=== PATIENT | male | born 1960 | race Caucasian/White ===

== ENCOUNTER 2021-08-02 07:32 | Outpatient (CLI) | payer MEDICARE, MEDICAID, SELFPAY ==
[2021-08-02 07:51] VITALS: BMI 39.9
--- NOTE | 2021-08-02 07:59 | ECG_ITS ---
[facility] Test Date: 2021-08-02 Pat Name: Gustavo Bledsoe Department: Room: Gender: Male Manager Inventory: Iman Chambers : 1960 Requested By: Miranda Cantor Order Number: [id number] Annalise MD: Miranda Cantor M.D. Interpretive Statements NAME OF STUDY: LEXISCAN SESTAMIBI STRESS TEST INDICATION: Chest Pain PROCEDURE: At the baseline, the blood pressure was 130/98 mmHg with a heart rate of 60 bpm. The electrocardiogram showed sinus rhythm, normal axis with nonspecific ST-T wave changes. The Lexiscan was infused over a period of 20 seconds. A total of 0.4 milligrams of Lexiscan was infused. The stress phase was continued for a total of 5 minutes. Heart rate at the end of the stress phase was 75 beats per minute with a blood pressure of 127/74 mmHg. The EKG at the peak infusion revealed sinus rhythm with no significant ST-T wave changes. The study was terminated due to protocol completion. Sestamibi was injected 20 seconds after the Lexiscan infusion. Blood pressure at the end of the recovery phase was 128/80 mmHg with a heart rate of 98 beats per minute. CONCLUSION: 1. No significant EKG changes with the LexiScan infusion 2. No LexiScan induced chest pain or cardiac arrhythmia. 3. Normal blood pressure and heart rate response. 4. Sestamibi/sestamibi perfusion scan pending; see separate report. Electronically Signed On 08-08-2021 12:25:17 MARKETING PLANNING MANAGER by Miranda Cantor M.D. [id number]
--- NOTE | 2021-08-02 08:00 | NMCV_ITS ---
NM minoo perf SPECT r/s* [id number] Gustavo Bledsoe Age: 60 Gender: M : 1960 Exam Date: 08/02/2021 08:50 Ordering Phys: Miranda Cantor MD ([email or web address]) Technologist: KWAKU Govea Exam Location: [facility] Indications: CHEST PRESSURE HISTORY OF CAD STRESS TEST Please see separate stress test report in [facility] for full findings IMAGE PROTOCOL Rest/Stress 1 Lexiscan Day Radiopharmaceutical Dose (mCi) Administration Site Administered by Rest: Tc-99m 10.9 IV KWAKU Freeman Sestamibi Stress:Tc-99m 32.8 IV KWAKU Freeman Sestamibi Rest: 02-Aug-2021 60 Discovery 630 Stress: 02-Aug-2021 30 Discovery 630 0.4mg Lexiscan. Images obtained in supine and prone position. SPECT RESULTS Technical Quality: Excellent Raw Data Analysis: Normal Image Corrections: No attenuation or motion correction applied Summed Stress Score: 1 Summed Rest Score: 3 Summed Difference Score: 1 PERFUSION FINDINGS Small sized perfusion abnormality of mild severity of mid to apical inferior and mid anteroseptal mackenzie on rest images with improved tracer uptake on stress images. This is suggestive of attenuation artifact. FUNCTIONAL RESULTS (calculated via Gated SPECT) Stress Image LV EF (%): 71 Stress EDV (mL):125 TID: 0.96 Stress ESV (mL):36 FUNCTIONAL FINDINGS: The left ventricle is normal in size. Transient Ischemia Dilatation of 0.96. There is normal left ventricular systolic function. The left ventricular ejection fraction is normal with a value of 71%. There is normal left ventricular wall thickening. IMPRESSIONS 1. Myocardial perfusion imaging is normal. Attenuation artifact in inferior wall. 2. Overall left ventricular systolic function is normal without regional wall motion abnormalities. 3. The left ventricular ejection fraction is normal with a value of 71%. 4. No prior similar studies to compare. Miranda Cantor MD (Electronically Signed) Final Date: 05 August 2021 16:58 S
[2021-08-02 09:50] VITALS: BP 120/67; PULSE 81
[2021-08-02] MEDS: regadenoson 0.4 Mg/5 ml Syringe IVP (09:50)
== END 2021-08-02 07:33 | disposition home or self-care (01) ==
LOC: CDL 07:41
PROVIDERS: PCP Family Medicine; Visit Provider Internal Medicine Cardiovascular Disease
DX: R07.89 Other chest pain (principal); I25.10 Atherosclerotic heart disease of native coronary artery without angina pectoris; R06.02 Shortness of breath
CPT/HCPCS: 78452; 93017; A9500; J2785

== ENCOUNTER 2021-09-19 12:49 | Emergency (ER) | payer MEDICARE, MEDICAID, SELFPAY ==
[2021-09-19 12:52] VITALS: BP 157/96; PULSE 80; RESP 17; O2SAT 97; BMI 39.9
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
[2021-09-19] MEDS: ketorolac 60 mg/2 mL INJ IM (14:20)
[2021-09-19 14:21] VITALS: BP 157/96; PULSE 70; RESP 15; TEMP 36.6; O2SAT 96
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
[2021-09-19 16:21] VITALS: BP 158/82; PULSE 62; RESP 15; TEMP 36.6; O2SAT 97
== END 2021-09-19 16:20 | disposition home or self-care (01) ==
PROVIDERS: Emergency Provider Nurse Practitioner Family; PCP Family Medicine
DX: S13.4XXA Sprain of ligaments of cervical spine, initial encounter (principal); S39.012A Strain of muscle, fascia and tendon of lower back, initial encounter; Z79.84 Long term (current) use of oral hypoglycemic drugs; Z79.82 Long term (current) use of aspirin; I25.10 Atherosclerotic heart disease of native coronary artery without angina pectoris; E11.9 Type 2 diabetes mellitus without complications; E78.5 Hyperlipidemia, unspecified; I10 Essential (primary) hypertension; V59.50XA Passenger in pick-up truck or van injured in collision with unspecified motor vehicles in traffic accident, initial encounter
CPT/HCPCS: 72020; 72040; 72100; 73110; 96372; 99283; J1885

== ENCOUNTER → 2021-11-23 08:35 | Outpatient (BNVA) | payer MEDICARE, MEDICAID, SELFPAY | PROVIDERS: PCP Family Medicine; Visit Provider Internal Medicine Cardiovascular Disease | DX: I25.10 Atherosclerotic heart disease of native coronary artery without angina pectoris (principal); I10 Essential (primary) hypertension; R07.89 Other chest pain; E78.2 Mixed hyperlipidemia; E11.9 Type 2 diabetes mellitus without complications; Z87.891 Personal history of nicotine dependence; Z79.84 Long term (current) use of oral hypoglycemic drugs | CPT/HCPCS: 99214 ==

== ENCOUNTER → 2022-07-04 10:19 | Outpatient (BNVA) | payer MEDICARE, MEDICAID, SELFPAY | PROVIDERS: PCP Family Medicine; Visit Provider Internal Medicine Cardiovascular Disease | DX: I25.10 Atherosclerotic heart disease of native coronary artery without angina pectoris (principal); I10 Essential (primary) hypertension; E78.2 Mixed hyperlipidemia; E11.9 Type 2 diabetes mellitus without complications; Z79.84 Long term (current) use of oral hypoglycemic drugs; Z87.891 Personal history of nicotine dependence | CPT/HCPCS: 99214 ==

== ENCOUNTER → 2023-02-04 11:48 | Outpatient (BNVA) | payer MEDICARE, MEDICAID, SELFPAY | PROVIDERS: PCP Family Medicine; Visit Provider Anesthesiology Pain Medicine | DX: G89.29 Other chronic pain; M54.2 Cervicalgia; M51.26 Other intervertebral disc displacement, lumbar region; M25.512 Pain in left shoulder | CPT/HCPCS: 73030; 99205 ==

== ENCOUNTER 2023-02-19 11:10 | Outpatient (CLI) | payer MEDICARE, MEDICAID, SELFPAY ==
--- NOTE | 2023-02-19 12:00 | CT_ITS ---
WS: [id number] CT LUMBAR SPINE, noncontrast. HISTORY: M54.50 - Low back pain, unspecified TECHNIQUE: Contiguous 2.0 mm axial imaging are performed. Sagittal and coronal reformats are submitte d and reviewed. All CT scans at [facility] use at least one of these dose optimization techni ques: automated exposure control; mA and/or kV adjustment per patient size (includes targeted exams w here dose is matched to clinical indication); or iterative reconstruction. IV contrast: None DLP: 1267.03 mGy.cm COMPARISON: None available. Very mild increase in the lumbar lordosis. L4 anterolisthesis by 2 mm. L1 and L2 retrolisthesis by 2 mm. Mild disc space narrowing at T12-L1 and L1-2. No vertebral body fractures. L1-2: Mild annular disc bulging and facet arthritis. Right foraminal disc protrusion resulting in mod erate foraminal stenosis. There is also mild encroachment upon the subarticular recesses. L2-3: Diffuse annular disc bulging and osteophytic ridging with facet arthritis. Left foraminal disc protrusion. Mild central and right foraminal stenosis. Moderate left foraminal stenosis. There is dis c contacting the L2 and L3 nerve roots but greatest on the left. L3-4: Mild annular disc bulging with disc encroachment upon the ventral thecal sac. Mild facet arthri tis. Mild to moderate bilateral foraminal stenosis, left greater than right. Mild central and subarti cular recess stenosis. L4-5: Mild osteophytic ridging with annular disc bulging. Moderate bilateral facet joint arthritis en croaching into the subarticular recesses and foramina. Small central disc protrusion. Moderate centra l, bilateral subarticular recess and foraminal stenosis. L5-S1: Mild annular disc bulging and osteophytic ridging. Left foraminal disc protrusion. Osteophytes encroach into the foramina also contributing to stenosis. Mild central, bilateral subarticular reces s and right foraminal stenosis. Moderate left foraminal stenosis. Moderate bilateral facet joint arth ritis. Mild atherosclerotic plaque within the abdominal aorta. IMPRESSION: 1. Moderate central, bilateral subarticular recess and foraminal stenosis at L4-5. 2. Moderate left foraminal stenosis at L5-S1 with mild central, bilateral subarticular recess and rig ht foraminal stenosis. 3. Right foraminal disc protrusion at L1-2 resulting in moderate foraminal stenosis. 4. Moderate left foraminal stenosis at L2-3 with mild central and right foraminal stenosis. There is disc contacting the L2 and L3 nerve roots but greatest on the left. 5. Mild to moderate bilateral foraminal stenosis at L3-4 with mild central and bilateral subarticular recess stenosis. 6. Facet joint arthritis moderate at L4-5 and L5-S1.
--- NOTE | 2023-02-19 12:00 | CT_ITS ---
WS: [id number] CT CERVICAL SPINE HISTORY: M54.2 - Cervicalgia, left shoulder pain. TECHNIQUE: Contiguous 2.0 mm axial imaging performed through the entire cervical spine. Sagittal and coronal reformats also performed. All CT scans at [facility] use at least one of these dose o ptimization techniques: automated exposure control; mA and/or kV adjustment per patient size (include s targeted exams where dose is matched to clinical indication); or iterative reconstruction. DLP: 485.97 mGy.cm COMPARISON: None available. Mild straightening of the normal lumbar lordosis. No cervical spine fracture. Disc spaces are mild to moderately narrowed with osteophytic ridging from L3-T1. Craniocervical junction is normally aligned . Lateral masses of C1 and C2 are aligned. The odontoid is intact. C2-C3: Small central disc protrusion with minimal foraminal narrowing and mild facet arthritis. C3-C4: Mild osteophytic ridging with bilateral facet joint arthritis, left greater than right. Modera te to severe left and mild right foraminal stenosis. C4-C5: Osteophytic ridging with a shallow central disc protrusion. Moderate right and mild left ace inal stenosis. C5-C6: Diffuse osteophytic ridging. Mild central and bilateral foraminal stenosis. C6-C7: Osteophytic ridging and facet arthritis. Severe left and moderate right foraminal stenosis. Mi ld central stenosis. C7-T1: Moderate bilateral foraminal stenosis, right greater than left. Soft tissues are normal. Lung apices are clear. IMPRESSION: 1. Moderate to severe left and mild right foraminal stenosis at C3-4. 2. Moderate right and mild left foraminal stenosis C4-5. 3. Mild central and bilateral foraminal stenosis at C5-6. 4. Severe left and moderate right foraminal stenosis at C6-7 with mild central stenosis. 5. Moderate bilateral foraminal stenosis at C7-T1. Multilevel osteophytic ridging and disc space narrowing. Facet joint arthritis throughout the cervica l spine but appears to be most significant on the left at C3-4, C6-7 and C7-T1.
== END 2023-02-19 11:11 | disposition home or self-care (01) ==
PROVIDERS: PCP Family Medicine; Visit Provider Anesthesiology Pain Medicine
DX: M48.03 Spinal stenosis, cervicothoracic region (principal); M47.813 Spondylosis without myelopathy or radiculopathy, cervicothoracic region; G89.29 Other chronic pain; M48.07 Spinal stenosis, lumbosacral region; M47.817 Spondylosis without myelopathy or radiculopathy, lumbosacral region; M25.512 Pain in left shoulder; M25.78 Osteophyte, vertebrae
CPT/HCPCS: 72125; 72131

== ENCOUNTER → 2023-02-20 14:58 | Outpatient (BNVA) | payer MEDICARE, MEDICAID, SELFPAY | PROVIDERS: PCP Family Medicine; Visit Provider Anesthesiology Pain Medicine | DX: M19.012 Primary osteoarthritis, left shoulder (principal) | CPT/HCPCS: 20610 ==

== ENCOUNTER → 2023-02-27 09:46 | Outpatient (BNVA) | payer MEDICARE, MEDICAID, SELFPAY | PROVIDERS: PCP Family Medicine; Visit Provider Anesthesiology Pain Medicine | DX: M51.26 Other intervertebral disc displacement, lumbar region (principal); M54.12 Radiculopathy, cervical region; M48.02 Spinal stenosis, cervical region; M48.061 Spinal stenosis, lumbar region without neurogenic claudication; M47.816 Spondylosis without myelopathy or radiculopathy, lumbar region; M25.512 Pain in left shoulder | CPT/HCPCS: 99215 ==

== ENCOUNTER → 2023-04-10 13:45 | Outpatient (BNVA) | payer MEDICARE, MEDICAID, SELFPAY | PROVIDERS: PCP Family Medicine; Visit Provider Internal Medicine Cardiovascular Disease | DX: R07.89 Other chest pain (principal); I25.10 Atherosclerotic heart disease of native coronary artery without angina pectoris; I10 Essential (primary) hypertension; E78.2 Mixed hyperlipidemia; E11.9 Type 2 diabetes mellitus without complications; Z87.891 Personal history of nicotine dependence; Z79.84 Long term (current) use of oral hypoglycemic drugs | CPT/HCPCS: 99214 ==

== ENCOUNTER → 2023-09-18 14:03 | Outpatient (BNVA) | payer MEDICARE, MEDICAID, SELFPAY | PROVIDERS: PCP Family Medicine; Visit Provider Internal Medicine Cardiovascular Disease | DX: R06.09 Other forms of dyspnea (principal); I25.10 Atherosclerotic heart disease of native coronary artery without angina pectoris; E78.2 Mixed hyperlipidemia; E11.9 Type 2 diabetes mellitus without complications; Z79.84 Long term (current) use of oral hypoglycemic drugs; I10 Essential (primary) hypertension; Z87.891 Personal history of nicotine dependence | CPT/HCPCS: 99214 ==

== ENCOUNTER 2023-09-26 09:16 | Outpatient (CLI) | payer MEDICARE, MEDICAID, SELFPAY ==
--- NOTE | 2023-09-26 10:15 | USCV_ITS ---
Se Bledsoe Age: 62 Gender: M : 1960 Exam Date: 09/26/2023 09:29 Ordering Phys: Eder Frank MD ([email or web address]) Technologist: CT Exam Location: [facility] Indication: cardiomyopathy BP: 140 / 96 HR: 51 Rhythm: Sinus Technical Quality: Adequate MEASUREMENTS (Male / Female) Normal Values 2D ECHO LVOT Diameter 2.5 cm LV Ejection Fraction MOD 2C 56.2 % LV Ejection Fraction 2C AL 55.4 % LA Diameter 4.8 cm RA Systolic Volume 4C AL 62.0 ml RA Systolic Volume 4C MOD 58.2 ml Aorta at Sinotubular Diameter 3.1 cm IVC Diameter 2.0 cm M-MODE LA Ao Ratio MM 1.9 AV Cusp Separation MM 2.2 cm DOPPLER AV Peak Velocity 161.0 cm/s LVOT Peak Velocity 113.0 cm/s AV Area Cont Eq vti 3.5 cm squared AV Area Cont Eq pk 3.4 cm squared MV Peak Velocity 87.0 cm/s MV Area PHT 2.4 cm squared Mitral E to A Ratio 1.5 TV Peak Velocity 145.5 cm/s TR Peak Velocity 180.0 cm/s TR Peak Gradient 13.0 mmHg TV Peak E Velocity 66.0 cm/s Right Atrial Pressure 3.0 mmHg Pulmonary Artery Systolic Pressu 16.0 mmHg PV Peak Velocity 118.5 cm/s FINDINGS Left Ventricle Normal left ventricular size and systolic function, EF 55%. No regional wall motion abnormalities. Grade II/IV diastolic dysfunction, moderately elevated filling pressures. Right Ventricle The right ventricle is normal in size and function. Right Atrium The right atrium is normal in size. Left Atrium Mildly increased left atrial size. Mitral Valve Trace mitral valve regurgitation. Aortic Valve No gross abnormalities noted Tricuspid Valve Trace tricuspid valve regurgitation. Pulmonic Valve No gross abnormalities noted Pericardium Normal pericardium without effusion. Aorta Normal ascending aorta dimension. IVC Normal inferior vena cava. CONCLUSIONS Normal left ventricular size and systolic function, EF 55%. No regional wall motion abnormalities. Grade II/IV diastolic dysfunction, moderately elevated filling pressures. Mildly increased left atrial size. Trace mitral and tricuspid valve regurgitation. There is no pericardial effusion. There are no intracardiac masses. No similar previous studies are available for comparison Dr Eder Frank MD FACC (Electronically Signed) Final Date: 02 October 2023 20:57 S
== END 2023-09-26 09:17 | disposition home or self-care (01) ==
LOC: RAD 09:17
PROVIDERS: PCP Family Medicine; Visit Provider Internal Medicine Cardiovascular Disease
DX: R06.09 Other forms of dyspnea (principal); I42.9 Cardiomyopathy, unspecified
CPT/HCPCS: 93306

== ENCOUNTER → 2024-04-22 15:23 | Outpatient (BNVA) | payer MEDICARE, MEDICAID, SELFPAY | PROVIDERS: PCP Family Medicine; Visit Provider Internal Medicine Cardiovascular Disease | DX: I25.10 Atherosclerotic heart disease of native coronary artery without angina pectoris (principal); E78.2 Mixed hyperlipidemia; I10 Essential (primary) hypertension; M25.512 Pain in left shoulder; Z87.891 Personal history of nicotine dependence | CPT/HCPCS: 99214 ==

== ENCOUNTER 2024-04-27 12:02 | Emergency (ER) | payer MEDICARE, MEDICAID, SELFPAY ==
[2024-04-27 12:16] VITALS: BP 148/94; PULSE 55; RESP 16; TEMP 36.7; O2SAT 95
--- NOTE | 2024-04-27 12:17 | XR_ITS ---
WS: [id number] Exam: XR shoulder LT min 2V* [id number] Date/Time of Exam: 04/27/2024 12:28 PM Reason For Exam: pain Comparison 02/04/2023. No fracture or dislocation. Early degenerative change of the glenohumeral joint. Marginal osteophyte along the medial aspect of the humeral neck. Normal soft tissues. XR/XR shoulder LT min 2V* [id number] IMPRESSION: 1. Degenerative change. No fracture.
--- NOTE | 2024-04-27 13:12 | ED_ITS ---
HPI - Extremity Problem General: Chief complaint: Extremity Problem,Nontraumatic Stated complaint: left shoulder injury Time Seen by Provider: 04/27/24 13:05 Source: patient Mode of arrival: ambulatory Limitations: no limitations History of Present Illness: Patient is a 63-year-old male presents to ED today with a complaint of chronic left shoulder pain. He states he has had the shoulder pain on and off for approximately 2 years. He states he has been seen by his primary care provider as well as pain management. He states he used to get intra-articular injections into the shoulder which did help. He reports never having an MRI of the shoulder nor has he ever followed up with a specialist/orthopedics. MD Complaint: joint pain Onset (ago): year(s) Pain Consistency: constant Location: left and upper extremity Radiation: none Relieving factors: nothing Exacerbating factors: range of motion Associated symptoms: Reports no associated symptoms; Deny chest pain or fever(s) Related Data Home Medications Medication Instructions Recorded Confirmed aspirin 81 mg tablet,delayed 81 mg PO DAILY 05/08/20 09/18/23 release ezetimibe 10 mg tablet (Zetia) 10 mg PO DAILY 05/08/20 09/18/23 losartan 100 mg tablet 100 mg PO DAILY 05/08/20 09/18/23 metoprolol succinate 50 mg 50 mg PO DAILY 05/08/20 09/18/23 tablet,extended release 24 hr oxybutynin chloride 5 mg tablet 5 mg PO BID 05/08/20 09/18/23 psyllium husk 0.52 gram capsule 0.52 gm PO DAILY 05/08/20 09/18/23 (Fiber (psyllium husk)) spironolactone 25 mg tablet 25 mg PO DAILY 05/08/20 09/18/23 tamsulosin 0.4 mg capsule 0.4 mg PO DAILY 05/08/20 09/18/23 trazodone 100 mg tablet 100 mg PO DAILY 05/08/20 09/18/23 ergocalciferol (vitamin D2) 1,250 50,000 unit PO .every 2 weeks 11/23/21 09/18/23 mcg (50,000 unit) capsule hydrocodone 10 mg-acetaminophen 1 tab PO Q4H PRN 07/04/22 09/18/23 325 mg tablet diclofenac sodium ( voltaren) 1% topical 02/04/23 09/19/23 gel diclofenac sodium (voltaren) 75 mg PO 02/04/23 09/18/23 levothyroxine 150 mcg tablet 137 mcg PO DAILY 02/04/23 09/18/23 miSOPROstol (CYTOTEC) 200 mcg PO 1XD 02/04/23 09/18/23 cyclobenzaprine ( Flexeril) 10 mg PO BID 04/10/23 09/18/23 gabapentin 300 mg capsule 300 mg PO TID 04/10/23 09/18/23 cetirizine 10 mg tablet (All Day 10 mg PO DAILY PRN 09/18/23 09/18/23 Allergy (cetirizine)) Previous Rx's Medication Instructions Recorded nitroglycerin 0.4 mg sublingual 0.4 mg sublingual Q5M PRN chest 11/23/21 tablet pain #25 tabs atorvastatin 80 mg tablet 80 mg PO DAILY #90 tabs 01/29/22 amlodipine 2.5 mg tablet 2.5 mg PO DAILY HTN 30 days #30 04/22/24 tabs methylprednisolone 4 mg tablets in See Rx Instructions PO .COMPLEX 04/27/24 a dose pack (Medrol (Britton)) #21 ea Allergies Allergy/AdvReac Type Severity Reaction Status Date / Time albuterol Allergy Unknown Verified 04/22/24 15:40 amitriptyline Allergy Unknown Verified 04/22/24 15:40 amoxicillin Allergy Unknown Verified 04/22/24 15:40 azelastine Allergy Unknown Verified 04/22/24 15:40 codeine Allergy Unknown Verified 04/22/24 15:40 fluticasone [From Flonase] Allergy Unknown Verified 04/22/24 15:40 hydralazine Allergy ALGY-Difficulty Verified 04/22/24 15:40 Breathing niacin Allergy Unknown Verified 04/22/24 15:40 [From Niaspan Extended-Release] omega-3 acid ethyl esters Allergy Unknown Verified 04/22/24 15:40 prednisone Allergy Intermediate palpitation Uncoded 04/22/24 15:40 s Review of Systems Const: Denies: fever(s), chills, body aches, fatigue or malaise Card: Denies: chest pain Resp: Denies: dyspnea GI: Denies: abdominal pain : Denies: flank pain or dysuria Musc: Reports: joint pain (L shoulder); Denies: neck pain, back pain, extremity pain, extremity swelling or joint swelling Neuro: Denies: numbness in extremities, weakness in extremities or sensory changes PFSH ED PFSH: Medical History Diabetes mellitus Hypertension Coronary artery disease Hyperlipidemia Family History Other CAD (coronary artery disease) Diabetes Hyperlipidemia Hypertension Stroke Denies family history of Cancer Social History Smoking and tobacco/nicotine status: former use of tobacco/nicotine Alcohol intake: current Alcohol intake frequency: few times a month Substance/Drug Use: never Physical Exam Const: COMMON NORMALS: no acute distress, patient oriented x3, no limitations, alert and well nourished GENERAL APPEARANCE: cooperative NUTRITIONAL APPEARANCE: overweight Extremity: COMMON NORMALS: normal to inspection, capillary refill normal and no joint enlargement GENERAL: Yes normal exam except as noted LEFT UPPER EXTREMITY: Yes shoulder joint Left shoulder joint: Yes ROM (fairly normal ROM but this does cause discomfort) and Yes neurovascular exam (normal) Neuro: COMMON NORMALS: patient oriented x3, moves all extremities, no focal motor deficits and no sensory deficits noted SENSORIUM/ORIENTATION: Yes alert Course Vital Signs: Vital signs: Vital Signs Temperature 98.1 F 04/27/24 12:16 Pulse Rate 55 L 04/27/24 14:07 Respiratory Rate 18 04/27/24 14:07 Blood Pressure 124/84 04/27/24 14:07 Pulse Oximetry 94 04/27/24 14:07 Oxygen Delivery Me thod Room Air 04/27/24 12:16 MDM - Extremity (Nontraumatic) Medical Decision Making Patient was given IM medications here and will be placed on steroids at home. We have case management set him up to see orthopedics for further evaluation of his chronic shoulder pain. Medical Records I reviewed the patient's medical records. Lab Data Radiology Impressions Shoulder X-Ray 04/27/24 12:17 IMPRESSION: 1. Degenerative change. No fracture. All radiology interpretation(s) finalized by discharge Discharge Plan Discharge Patient Disposition: Home Clinical Impression: Chronic pain in left shoulder Condition: Stable Prescriptions: New methylprednisolone [Medrol (Britton)] 4 mg tablets,dose pack See Rx Instructions .ROUTE .COMPLEX Qty: 21 0RF Rx Instructions: orally per package directions No Action ezetimibe [Zetia] 10 mg tablet 10 mg PO DAILY trazodone 100 mg tablet 100 mg PO DAILY tamsulosin 0.4 mg capsule 0.4 mg PO DAILY metoprolol succinate 50 mg tablet extended release 24 hr 50 mg PO DAILY losartan 100 mg tablet 100 mg PO DAILY oxybutynin chloride 5 mg tablet 5 mg PO BID spironolactone 25 mg tablet 25 mg PO DAILY aspirin 81 mg tablet,delayed release (DR/EC) 81 mg PO DAILY psyllium husk [Fiber (psyllium husk)] 0.52 gram capsule 0.52 gm PO DAILY hydrocodone-acetaminophen 10-325 mg tablet 1 tab PO Q4H PRN levothyroxine 150 mcg tablet 137 mcg PO DAILY ergocalciferol (vitamin D2) 1,250 mcg (50,000 unit) capsule 50,000 unit PO .every 2 weeks amlodipine 2.5 mg tablet 2.5 mg PO DAILY 30 Days Qty: 30 5RF nitroglycerin 0.4 mg tablet, sublingual 0.4 mg SUBLINGUAL Q5M PRN (Reason: chest pain) Qty: 25 3RF Rx Instructions: do not exceed 3 doses per episode gabapentin 300 mg capsule 300 mg PO TID miSOPROstol (CYTOTEC) 200 mcg PO 1XD diclofenac sodium (voltaren) 75 mg PO diclofenac sodium ( voltaren) 1% gel topical cyclobenzaprine ( Flexeril) 10 mg PO BID bupivacaine (PF) 0.25 % (2.5 mg/mL) solution 5 ml intra-articular ONCE Qty: 1 0RF cetirizine [All Day Allergy (cetirizine)] 10 mg tablet 10 mg PO DAILY PRN atorvastatin 80 mg tablet 80 mg PO DAILY Qty: 90 2RF Discharge Orders: Discharge ED (Routine); Ordered 04/27/24 Ordered By: Ria Calvin Referrals: Kaely Monahan DO [Primary Care Provider] - Activity Restrictions/Additional Instructions: As we discussed, I will place another case management referral to get you a follow-up appointment with an human resources operations specialist for further evaluation of your shoulder discomfort. Coding Level of Care Code ED Managing Editor for Mario Boyd
[2024-04-27] MEDS: dexamethasone 10 mg/mL INJ 8 MG IM (13:29)
[2024-04-27] MEDS: ketorolac 60 mg/2 mL INJ IM (13:29)
[2024-04-27 13:30] VITALS: RESP 18
[2024-04-27] MEDS: morphine 4 mg/mL SDV 1 mL IM (13:30)
[2024-04-27 13:34] VITALS: BP 135/86; PULSE 84; RESP 18; O2SAT 95
[2024-04-27 14:07] VITALS: BP 124/84; PULSE 55; RESP 18; O2SAT 94
--- NOTE | 2024-04-28 09:58 | DCPLANNER ---
Message sent to Ortho for Chronic L shoulder pain
== END 2024-04-27 14:20 | disposition home or self-care (01) ==
PROVIDERS: Emergency Provider Physician Assistant; PCP Family Medicine
DX: M25.512 Pain in left shoulder (principal); Z79.82 Long term (current) use of aspirin; E11.9 Type 2 diabetes mellitus without complications; I10 Essential (primary) hypertension; I25.10 Atherosclerotic heart disease of native coronary artery without angina pectoris; Z87.891 Personal history of nicotine dependence
CPT/HCPCS: 73030; 96372; 99284; J1100; J1885; J2270

== ENCOUNTER → 2024-05-26 09:01 | Outpatient (BNVA) | payer MEDICARE, MEDICAID, SELFPAY | PROVIDERS: PCP Family Medicine; Visit Provider Nurse Practitioner | DX: M25.512 Pain in left shoulder (principal); M19.012 Primary osteoarthritis, left shoulder; R29.898 Other symptoms and signs involving the musculoskeletal system | CPT/HCPCS: 73030; 99204 ==

== ENCOUNTER 2024-06-08 07:27 | Outpatient (CLI) | payer MEDICARE, MEDICAID, SELFPAY ==
--- NOTE | 2024-06-08 08:00 | MR_ITS ---
WS: [id number] MRI LEFT SHOULDER HISTORY: Left shoulder pain COMPARISON: Radiograph 05/26/2024 TECHNIQUE: Multiplanar sequences of the shoulder joint are submitted. Mild AC joint arthritis. Increased fluid and intermediate signal through the joint. Mild subacromial impingement by an enthesopathy from the distal undersurface of the acromion. Biceps tendon remains at the bicipital groove but there is increased fluid within the tendon sheath. No os acromion. Humeral head is moderately high riding. There is osteophytic ridging around the humeral head and also the glenoid. Hypertrophic osteophyte within the glenohumeral joint space. Loss of the normal cartila ge with subchondral cystic changes along the glenoid and humeral head. No significant muscle atrophy or edema. Insertion site tear of the distal supraspinatus tendon extends over a width of 7 mm. There is additio nal fluid extending more proximally along the tendon consistent with interstitial extension of the te ar. There is surface fraying involving both the bursal and articular surfaces. Increased fluid signal in the distal subscapularis tendon consistent with a near complete full-thickness tear. No infraspin atus tendon tear. There are several low signal foci within the subscapularis recess. The largest measures 1.7 x 0.7 cm. There is a smaller focus measuring 0.8 x 0.6 cm. These appear to be loose bodies closely associated with the subscapularis tendon. Surface fraying and intrasubstance degeneration involving the entire labrum. Labrum appears small. MR/MR shoulder LT wo con* [id number] IMPRESSION: 1. Moderately high riding humeral head. 2. Osteophytic ridging, loss of cartilage and subchondral cystic changes at th e glenoid and humeral head. 3. There are several loose bodies in the subscapularis recess with the largest measuring 1.7 x 0.7 cm. 4. Insertion site tear of the supraspinatus tendon over a width of 7 mm with i nterstitial extension into the more proximal tendon. 5. High-grade, near complete full-thickness tear of the distal subscapularis t endon. 6. Mild AC joint arthritis. 7. Mild subacromial impingement. 8. Biceps tendon tenosynovitis. 9. Diffuse labral abnormality. Labrum is diffusely small with extensive intras ubstance degeneration.
== END 2024-06-08 07:28 | disposition home or self-care (01) ==
LOC: RAD 07:27
PROVIDERS: PCP Family Medicine; Visit Provider Nurse Practitioner
DX: M19.012 Primary osteoarthritis, left shoulder (principal); M75.112 Incomplete rotator cuff tear or rupture of left shoulder, not specified as traumatic; M25.712 Osteophyte, left shoulder; M24.012 Loose body in left shoulder; M65.822 Other synovitis and tenosynovitis, left upper arm; X58.XXXA Exposure to other specified factors, initial encounter
CPT/HCPCS: 73221

== ENCOUNTER → 2024-06-23 09:16 | Outpatient (BNVA) | payer MEDICARE, MEDICAID, SELFPAY | PROVIDERS: PCP Family Medicine; Visit Provider Nurse Practitioner | DX: S46.812A Strain of other muscles, fascia and tendons at shoulder and upper arm level, left arm, initial encounter (principal); M75.42 Impingement syndrome of left shoulder; M19.012 Primary osteoarthritis, left shoulder; M24.012 Loose body in left shoulder; M65.812 Other synovitis and tenosynovitis, left shoulder; X58.XXXA Exposure to other specified factors, initial encounter | CPT/HCPCS: 99214 ==

== ENCOUNTER → 2024-07-30 08:29 | Outpatient (BNVA) | payer MEDICARE, MEDICAID, SELFPAY | PROVIDERS: PCP Family Medicine; Visit Provider Nurse Practitioner | DX: M19.012 Primary osteoarthritis, left shoulder (principal); S46.812D Strain of other muscles, fascia and tendons at shoulder and upper arm level, left arm, subsequent encounter; M75.42 Impingement syndrome of left shoulder; X58.XXXD Exposure to other specified factors, subsequent encounter | CPT/HCPCS: 20610; 99213; J1100; J2795; J3301 ==

== ENCOUNTER → 2024-11-05 09:33 | Outpatient (BNVA) | payer MEDICARE, MEDICAID, SELFPAY | PROVIDERS: PCP Family Medicine; Visit Provider Nurse Practitioner | DX: M75.42 Impingement syndrome of left shoulder (principal); S46.812D Strain of other muscles, fascia and tendons at shoulder and upper arm level, left arm, subsequent encounter; M19.012 Primary osteoarthritis, left shoulder; Z71.89 Other specified counseling; X58.XXXD Exposure to other specified factors, subsequent encounter | CPT/HCPCS: 20610; 99213; J1100; J2795; J3301; J9999 ==

== ENCOUNTER → 2024-12-14 10:25 | Outpatient (BNVA) | payer MEDICARE, MEDICAID, SELFPAY | PROVIDERS: PCP Family Medicine; Visit Provider Internal Medicine Cardiovascular Disease | DX: R07.9 Chest pain, unspecified (principal) | CPT/HCPCS: 93005; 99214 ==

== ENCOUNTER → 2025-02-11 07:28 | Outpatient (BNVA) | payer MEDICARE, MEDICAID, SELFPAY | PROVIDERS: PCP Family Medicine; Visit Provider Nurse Practitioner | DX: M19.012 Primary osteoarthritis, left shoulder (principal); S46.812D Strain of other muscles, fascia and tendons at shoulder and upper arm level, left arm, subsequent encounter; M75.42 Impingement syndrome of left shoulder; Z71.89 Other specified counseling; X58.XXXD Exposure to other specified factors, subsequent encounter | CPT/HCPCS: 20610; J1100; J2795; J3301; J9999 ==

== ENCOUNTER → 2025-05-20 07:31 | Outpatient (BNVA) | payer MEDICARE, MEDICAID, SELFPAY | PROVIDERS: PCP Family Medicine; Visit Provider Nurse Practitioner | DX: M19.012 Primary osteoarthritis, left shoulder (principal); M75.42 Impingement syndrome of left shoulder | CPT/HCPCS: 20610; J1100; J2795; J3301; J9999 ==

== ENCOUNTER → 2025-06-16 10:07 | Outpatient (BNVA) | payer MEDICARE, MEDICAID, SELFPAY | PROVIDERS: PCP Family Medicine; Visit Provider Nurse Practitioner Family | DX: I25.10 Atherosclerotic heart disease of native coronary artery without angina pectoris (principal); I10 Essential (primary) hypertension; E78.5 Hyperlipidemia, unspecified; E11.9 Type 2 diabetes mellitus without complications; Z79.84 Long term (current) use of oral hypoglycemic drugs | CPT/HCPCS: 99214 ==